=== PATIENT | male | born 2000 | race Hispanic/Latino ===

== ENCOUNTER → 2025-05-31 | Outpatient (CLI) | payer OTHER | LOC: M PLAIMG 07:33 | PROVIDERS: ATTEND Physician Assistant Surgical | DX: M79.644 Pain in right finger(s) (principal); S53.31XA Traumatic rupture of right ulnar collateral ligament, initial encounter; X58.XXXA Exposure to other specified factors, initial encounter; Y92.9 Unspecified place or not applicable; Y93.9 Activity, unspecified; Y99.9 Unspecified external cause status ==